=== PATIENT | male | born 1945 | race Hispanic/Latino ===

== ENCOUNTER 2019-01-25 13:27 | Inpatient (IN) | payer OTHER ==
[2019-01-25] MEDS ORDERED: ONDANSETRON 4 MG/2 ML VIAL ONE (14:08)
[2019-01-25] MEDS ORDERED: CEFEPIME 1 GM/100 ML BAG IV ONE (14:08)
[2019-01-25] MEDS ORDERED: NA CHLORIDE 0.9% 3,000 ML ONE (14:08)
[2019-01-25] MEDS ORDERED: FAMOTIDINE 20 MG/2 ML VIAL IV ONE (14:09)
[2019-01-25 14:13] LABS: Absolute Lymphocytes (CBC) 0.5 K/uL (0.7-4.9); Absolute Monocytes 0.8 K/uL (0.1-1.3); Absolute Neutrophil 18.6 K/uL (1.8-8.0); Basophils % 0.1 % (0-1.3); Eosinophils % 2.7 % (0-4.4); Hematocrit 58.9 % (39.6-49.0); Lymphocytes % 2.3 % (15.3-44.8); MPV 11.4 fL (7.6-11.3); Monocytes % 3.9 % (3.3-12.3); RBC Red Blood Cell Count 5.87 M/uL (4.33-5.43)
[2019-01-25] MEDS ORDERED: RSI MEDICATION KIT IV ONE (14:17)
[2019-01-25] MEDS ORDERED: PROPOFOL 0 MG/0 ML VIAL IV ONE (14:18)
[2019-01-25 14:23] LABS: Urine Blood TRACE (NEG); Urine Glucose TRACE (NEG); Urine Protein 1+ (NEG); Urine pH 5.5 (5.0-7.0)
[2019-01-25 14:25] LABS: Urine Bacteria LOADED /HPF (NONE SEEN); Urine Culture Reflex Order REFLEXED; Urine Mucus 1+ /HPF (NONE SEEN)
[2019-01-25 14:34] LABS: Arterial Blood Carboxyhemoglob 1.3 % (0-1.5); Blood Gas Oxyhemoglobin 97.2 % (94-97)
[2019-01-25] MEDS ORDERED: VANCOMYCIN/NS 1 gm 1 GM/250 ML BAG IV SCH ×2 (14:45→17:30)
[2019-01-25 14:56] LABS: Albumin 1.8 g/dL (3.4-5.0); Bilirubin Direct 5.7 mg/dL (0-0.2); CKMB Creatine Kinase MB 16.2 ng/mL (0.3-3.6); Potassium 5.4 mmol/L (3.5-5.1); Protein, Total 7.2 g/dL (6.4-8.2); Troponin (Emerg Dept Use Only) 0.87 ng/mL (0.0-0.045)
[2019-01-25 15:00] LABS: Bilirubin Total 8.7 mg/dL (0.2-1.0); Blood Morphology Comment NOT SEEN (NOT SEEN); Platelet Estimate DECR
[2019-01-25 15:21] LABS: Barbiturates NEGATIVE (NEGATIVE); Benzodiazepines NEGATIVE (NEGATIVE); Cocaine NEGATIVE (NEGATIVE); METHAMPHETAM NEGATIVE (NEGATIVE); Methadone NEGATIVE (NEGATIVE); Opiates NEGATIVE (NEGATIVE); Phencyclidine NEGATIVE (NEGATIVE); THC Cannibis NEGATIVE (NEGATIVE)
[2019-01-25 15:25] LABS: Protime INR 1.98
--- NOTE | 2019-01-25 15:28 | RAD REPORT ---
EXAM DESCRIPTION: CT - Head C Spine Cap Wo Con - 01/25/2019 3:08 pm CLINICAL HISTORY: Fall, head, neck, chest and abdomen pain COMPARISON: CT abdomen and pelvis September 2016, CT chest June 2018 TECHNIQUE: Axial [address] head images were obtained. Axial [address] cervical spine images were obtain ed with sagittal and coronal reconstruction images reviewed. Axial 5 mm images of the chest, abdomen and pelvis were obtained. All CT scans are performed using dose optimization technique as appropriate and may include automated exposure control or mA/KV adjustment according to patient size. FINDINGS: No intracranial hemorrhage, mass or edema. No midline shift or abnormal fluid collection. Mastoid air cells and paranasal sinuses are clear. No skull fracture. Atrophy and chronic ischemic c hanges are present. Ventricles are in proportion. Cervical bodies are normal in height and alignment. No fracture or acute bone finding.All cervical le vels show disc space narrowing. Multilevel bony foraminal encroachment and borderline to mild spinal stenosis C3-C6No prevertebral soft tissue thickening or paraspinal mass.Central canal detail is inher ently limited on CT imaging. CT chest shows no pneumothorax, pulmonary contusion or pleural fluid collection. Calcified pleural pl aques are present. No mediastinal hematoma and the aorta and pulmonary arteries are unremarkable. No chest will mass or abnormal axillary finding. No displaced rib fracture or other significant bony fin ding. CT abdomen and pelvis show no injury to solid abdominal viscera. Cirrhotic liver changes are present. No focal liver lesions seen on noncontrast imaging. Gallstones are present without acute gallbladder finding. No biliary tree dilatation. No bowel injury or significant finding. No free air, free fluid or abnormal stranding. No hernia, mass or bulky lymphadenopathy. No urinary bladder abnormality. Thoracic and lumbar vertebral body and disc degenerative changes are present without acute finding. N o pelvis or proximal femur acute finding. IMPRESSION: Atrophy and chronic ischemic changes are present with no acute intracranial finding. Cervical spine degenerative changes with foraminal stenosis and borderline to mild multilevel spinal stenosis. No acute findings seen. No acute CT chest finding. Cirrhotic liver changes are present with no ascites. No focal liver lesion on noncontrast imaging. No acute abdominal or pelvic finding.
--- NOTE | 2019-01-25 15:36 | RAD REPORT ---
EXAM DESCRIPTION: RAD - Chest Single View - 01/25/2019 2:51 pm CLINICAL HISTORY: Cirrhosis, shortness of breath, altered mental status COMPARISON: June 2018 TECHNIQUE: AP portable chest image was obtained 1438 hours . FINDINGS: Lung volumes are low. Interstitial markings are prominent. No peripheral mass or consolida tion. Calcified pleural plaques are present. Mild interstitial edema, infiltrate or volume overload c ould be masked by the chronic pattern. Cardiomegaly is present but less pronounced than seen on the p rior study. No measurable pleural effusion and no pneumothorax. No acute bony abnormality seen. No ac mi'kmaq aortic findings suspected. IMPRESSION: Chronic interstitial lung disease is present as a baseline. No focal consolidation. Heart, vasculature and lung markings are all prominent as a baseline potentially masking mild failure or volume overload.
[2019-01-25] MEDS ORDERED: SOD POLYSTYREN SUL 15 GM/60 ML UCUP ONE (15:48)
[2019-01-25] MEDS ORDERED: LACTULOSE 20 GM/30 ML UCUP ONE (15:48)
--- NOTE | 2019-01-25 15:57 | ER ---
Nurse's Notes [facility] Name: Ibrahima Fried Age: 73 yrs Sex: Male : 1945 Arrival Date: 01/25/2019 Time: 13:30 Bed 3 Private MD: Diagnosis: Altered mental status, unspecified;Urinary tract infection, site not specified;Other sepsis;Hyperkalemia Presentation: 01/25 13:30 Presenting complaint: EMS states: LAST SEEN NORMAL 5 DAYS AGO, NON-COMPLIANT CIRRHOTIC bp FOUND DOWN WITH EVIDENCE OF RECENT ETOH USE. Transition of care: patient was not received from another setting of care. Onset of symptoms is unknown. Risk Assessment: Do you want to hurt yourself or someone else? Unable to obtain. Initial Sepsis Screen: Does the patient meet any 2 criteria? RR > 20 per min. Altered Mental Status. Does the patient have a suspected source of infection? No. Patient's initial sepsis screen is negative. Care prior to arrival: IV initiated. 20 GA, in the left antecubital area, Glucose check: 92. 13:30 Method Of Arrival: EMS: [facility] bp 13:30 Acuity: TAYLER 2 bp Triage Assessment: 13:35 General: Appears distressed, obese, unkempt, Behavior is agitated, anxious, combative, bp uncooperative. Pain: Unable to use pain scale. Does not appear to understand pain scale. EENT: No deficits noted. Neuro: Level of Consciousness is confused, Oriented to none. Cardiovascular: Rhythm is sinus tachycardia. Respiratory: Airway is patent Respiratory effort is labored, Respiratory pattern is hyperventilation. GI: Abdomen is obese. : No signs and/or symptoms were reported regarding the genitourinary system. Derm: No deficits noted. Musculoskeletal: Range of motion: intact in all extremities. Historical: - Allergies: 13:35 Lisinopril; bp - Home Meds: 13:35 furosemide 40 mg oral tab 1 tab 2 times per day [Active]; spironolactone 100 mg oral bp tab [Active]; propranolol 60 mg oral tab 1 tab daily [Active]; Xifaxan 550 mg oral tab 1 tab 2 times per day [Active]; - PMHx: 13:35 Cirrhosis; CAD; atrial flutter; Atrial Fib; Alcoholism; bp - Immunization history:: Adult Immunizations unknown. - Social history:: Smoking status: unknown Patient uses alcohol, patient/guardian reports chronic longstanding heavy alcohol consumption. patient/guardian reports recent binge of alcohol consumption. - Ebola Screening: : Patient negative for fever greater than or equal to 101.5 degrees Fahrenheit, and additional compatible Ebola Virus Disease symptoms Patient denies exposure to infectious person Patient denies travel to an Ebola-affected area in the 21 days before illness onset No symptoms or risks identified at this time. Screenin:44 Abuse screen: Denies threats or abuse. Denies injuries from another. Nutritional bp screening: No deficits noted. Tuberculosis screening: No symptoms or risk factors identified. Fall Risk No fall in past 12 months (0 pts). No secondary diagnosis (0 pts). IV access (20 points). Ambulatory Aid- None/Bed Rest/Nurse Assist (0 pts). Gait- Normal/Bed Rest/Wheelchair (0 pts) Mental Status- Overestimates/Forgets Limitations (15 pts.). Total Teague Fall Scale indicates Low Risk Score (25-44 pts). Fall prevention measures have been instituted. Side Rails Up X 2 Placed close to Nursing Station Frequent Obs/Assesments occuring As available Patient and Family Educated on Fall Prevention Program and strategies. Assessment: 13:30 General: SEE TRIAGE NOTE. bp 14:30 Reassessment: MD CONTEMPLATING INTUBATION, BUT PT PROTECTING AIRWAY AT THIS TIME. PT bp HYPOTHERMIC, SPEEDY HUGGER IN PLACE FOR WARMING. 15:30 Reassessment: PT RETURNED FROM CT, NO ACUTE FINDINGS. NO CHANGE IN PT NEURO STATUS. bp 16:30 Reassessment: FAMILY AT B/S, CONFIRMED PT RECENT ALCOHOL BINGE >5 DAYS. bp 17:51 Reassessment: ICU ADMIT IN PROCESS, PT REMAINS AOx0. bp 18:04 Reassessment: Room assignment to ICU will be given after 1900 shift change per Destini Morris, Data Examination Clerk. 18:45 Reassessment: PT NOTED TO BE IN RVR, PROVIDER NOTIFIED. MEDS ORDERED AND GIVEN. bp Vital Signs: 13:35 BP 95 / 56; Pulse 104; Resp 24; Pulse Ox 95% ; Weight 113.4 kg; bp 13:47 BP 136 / 101; Pulse 111; Resp 21; Pulse Ox 99% ; bp 14:30 BP 135 / 89; Pulse 104; Resp 23; Pulse Ox 97% ; bp 15:30 BP 110 / 75; Pulse 110; Resp 26; Temp 94.1; Pulse Ox 93% ; bp 16:26 BP 113 / 74; Pulse 109; Resp 23; Pulse Ox 92% ; bp 17:50 BP 122 / 103; Pulse 122; Resp 25; Temp 95.7; Pulse Ox 92% ; bp 18:58 BP 114 / 80; Pulse 109; Resp 28; Temp 97.3; Pulse Ox 94% ; bp ED Course: 13:30 Patient arrived in ED. ss 13:30 Steven Gonzalez, RN is Primary Nurse. bp 13:32 Triage completed. bp 13:32 Maintain EMS IV. Dressing intact. Good blood return noted. Site clean \T\ dry. Gauge \T\ bp site: 20 GAUGE LEFT AC. 13:35 Arm band placed on. bp 13:44 Patient has correct armband on for positive identification. Placed in gown. Bed in low bp position. Call light in reach. Side rails up X2. aviation project engineer on. Pulse ox on. NIBP on. 13:45 Smith cath inserted, using sterile technique, 18 Fr., by boot and shoe laborer, balloon inflated, to bp gravity drainage, urine specimen collected. returned leatha urine. Patient tolerated well. Inserted saline lock: 18 gauge in right antecubital area, using aseptic technique. Blood collected. 13:46 Kenroy Rebolledo PA is PHCP. cp 13:46 Kenroy Jeffers MD is Attending Physician. cp 14:01 EKG done, by ED staff, reviewed by Kenroy PIPER. [email or web address] 14:51 Chest Single View XRAY In Process Unspecified. EDMS 15:00 NGT: inserted 14 Fr. via left nare. verified placement of air over stomach, flushed bp with 20 ml tap water Patient tolerated well. 15:09 Head C Spine Cap Wo Con In Process Unspecified. EDMS 15:52 Ken Ruvalcaba MD is Hospitalizing Provider. cp 15:52 Mode Ruano MD is Hospitalizing Provider. cp 18:45 EKG done, by ED staff, reviewed by Kenroy PIPER. [email or web address] Administered Medications: 13:59 CANCELLED (Physician Discretion): NS 0.9% (30 ml/kg) 30 ml/kg IV at bolus once; Sepsis cp Protocol 14:00 Drug: Cefepime 1 grams Route: IVPB; Rate: 200 ml/hr; Infused Over: 30 mins; Site: right bp antecubital; 14:30 Follow up: IV Status: Completed infusion ss 14:00 Drug: Zofran 4 mg Route: IVP; Site: right antecubital; bp 14:00 Drug: Pepcid 20 mg Route: IVP; Site: right antecubital; bp 14:00 Drug: NS 0.9% 1000 ml Route: IV; Rate: 1 bolus; Site: right antecubital; bp 14:00 Drug: NS 0.9% 1000 ml Route: IV; Rate: 1 bolus; Site: right antecubital; bp 15:10 Drug: vancoMYCIN 1 grams Route: IVPB; Infused Over: 2 hrs; Site: left antecubital; ss 15:10 Drug: Banana Bag - (NS 0.9% 1000 ml, foLIC Acid 1 mg, Thiamine 100 mg, Multivitamin 1 bp amp) Route: IV; Rate: 125 ml/hr; Site: right antecubital; 19:57 Follow up: IV Status: Infusion continued upon admission tl2 15:30 Drug: Kayexalate 30 grams Route: PO; bp 20:00 Follow up: Response: No adverse reaction tl2 15:30 Drug: Lactulose 30 grams Volume: 45 ml; Route: PO; bp 20:01 Follow up: Response: No adverse reaction tl2 16:00 Drug: Aspirin Suppository 300 mg Route: MT; bp 18:30 Follow up: Response: No adverse reaction bp 18:45 Drug: Lopressor 5 mg Route: IVP; Site: left antecubital; bp 19:56 Follow up: Response: No adverse reaction; No adverse reaction, HR decreased to 110 tl2 19:56 Not Given (pt sent to unit): NS 0.9% 1000 ml IV at 75 ml/hr continuous tl2 Point of Care Testing: Blood Glucose: 13:47 Blood Glucose: 93 mg/dL; bp Ranges: Outcome: 15:56 Decision to Hospitalize by Provider. cp 20:02 Patient left the ED. tl2 Signatures: Dispatcher [employer] EDHardeep Leblanc jb1 Keysha Rosales RN RN ss Kenroy Rebolledo PA PA cp Jessica Child RN RN tl2 Lisa, Steven, RN RN bp Corrections: (The following items were deleted from the chart) 14:21 14:06 In radiology for Head C Spine Cap Wo Con+CT.RAD.BRZ. EDMS EDMS
--- NOTE | 2019-01-25 15:57 | EDPHYS ---
Physician Documentation [facility] Name: Ibrahima Fried Age: 73 yrs Sex: Male : 1945 Arrival Date: 01/25/2019 Time: 13:30 Bed 3 Private MD: ED Physician Kenroy Jeffers HPI: 01/25 14:00 This 73 yrs old Male presents to ER via EMS with complaints of Altered Mental cp Status. 14:00 The patient presents with decreased mental status, decreased responsiveness. Onset: The cp symptoms/episode began/occurred at an unknown time. Possible causes: alcohol, cirrhosis. Unable to obtain HPI due to altered mental status. Historical: - Allergies: 13:35 Lisinopril; bp - Home Meds: 13:35 furosemide 40 mg oral tab 1 tab 2 times per day [Active]; spironolactone 100 mg oral bp tab [Active]; propranolol 60 mg oral tab 1 tab daily [Active]; Xifaxan 550 mg oral tab 1 tab 2 times per day [Active]; - PMHx: 13:35 Cirrhosis; CAD; atrial flutter; Atrial Fib; Alcoholism; bp - Immunization history:: Adult Immunizations unknown. - Social history:: Smoking status: unknown Patient uses alcohol, patient/guardian reports chronic longstanding heavy alcohol consumption. patient/guardian reports recent binge of alcohol consumption. - Ebola Screening: : Patient negative for fever greater than or equal to 101.5 degrees Fahrenheit, and additional compatible Ebola Virus Disease symptoms Patient denies exposure to infectious person Patient denies travel to an Ebola-affected area in the 21 days before illness onset No symptoms or risks identified at this time. ROS: 14:00 Unable to obtain ROS due to altered mental status. cp Exam: 13:55 ECG was reviewed by the Attending Physician. cp 14:05 Constitutional: The patient appears non-diaphoretic, well developed, well nourished. cp 14:05 Head/face: Exam is negative for obvious evidence of injury or deformity. cp 14:05 Eyes: Periorbital structures: appear normal, Pupils: pinpoint, bilaterally, Sclera: no appreciated abnormality, Lids and lashes: appear normal, bilaterally. 14:05 ENT: External ear(s): are unremarkable, Ear canal(s): are normal, clear, TM's: dullness, bilaterally, Nose: is normal, Mouth: Lips: dry, Oral mucosa: dry, noted dried vomitus around mouth, Posterior pharynx: Airway: no evidence of obstruction, patent, Dental exam: dental caries, that is moderate, diffusely. 14:05 Neck: C-spine: vertebral tenderness, is not appreciated, crepitus, is not appreciated. 14:05 Chest/axilla: Inspection: rash, Palpation: crepitus, is not appreciated, tenderness, is not appreciated. 14:05 Cardiovascular: Rate: tachycardic, Rhythm: irregular, Edema: is not appreciated, JVD: is not appreciated. 14:05 Respiratory: the patient does not display signs of respiratory distress, Respirations: labored breathing, is not present, Breath sounds: are clear throughout, no decreased breath sounds, no stridor, no wheezing. 14:05 Abdomen/GI: Inspection: distension, is not seen, Bowel sounds: active, all quadrants, Palpation: soft, in all quadrants, mild abdominal tenderness, in all quadrants. 14:05 Musculoskeletal/extremity: Exam is negative for deformity, injury. 14:05 Skin: cellulitis, is not appreciated, psoriasis, on the abdomen. 14:05 Neuro: Orientation: Not oriented to person, place, situation, Mentation: responsive to voice Motor: moves all fours. 18:35 ECG was reviewed by the Attending Physician. Vital Signs: 13:35 BP 95 / 56; Pulse 104; Resp 24; Pulse Ox 95% ; Weight 113.4 kg; bp 13:47 BP 136 / 101; Pulse 111; Resp 21; Pulse Ox 99% ; bp 14:30 BP 135 / 89; Pulse 104; Resp 23; Pulse Ox 97% ; bp 15:30 BP 110 / 75; Pulse 110; Resp 26; Temp 94.1; Pulse Ox 93% ; bp 16:26 BP 113 / 74; Pulse 109; Resp 23; Pulse Ox 92% ; bp 17:50 BP 122 / 103; Pulse 122; Resp 25; Temp 95.7; Pulse Ox 92% ; bp 18:58 BP 114 / 80; Pulse 109; Resp 28; Temp 97.3; Pulse Ox 94% ; bp MDM: 13:58 Patient medically screened. seema 15:45 Data reviewed: vital signs, nurses notes, lab test result(s), EKG, radiologic studies, cp CT scan, plain films, I have discussed the patient's presentation/case with the attending Emergency Department Physician; and as a result, I will admit patient. 15:45 Test interpretation: by ED physician or midlevel provider: ECG. 15:55 Physician consultation: Mode Ruano MD was called at 15:50, was contacted at 15:50, cp regarding admission, to the ICU, patient's condition. 01/25 13:48 Order name: Basic Metabolic Panel 01/25 13:48 Order name: Blood Culture Adult (2) 01/25 13:48 Order name: CBC with Diff 01/25 13:48 Order name: Ckmb 01/25 13:48 Order name: CPK 01/25 13:48 Order name: Lactate 01/25 13:48 Order name: LFT's 01/25 13:48 Order name: Lipase; Complete Time: 15:04 01/25 13:48 Order name: Procalcitonin; Complete Time: 15:31 cp 01/25 15:31 Interpretation: Abnormal: Procalcitonin 3.77. 01/25 13:48 Order name: Protime (+inr); Complete Time: 15:31 cp 01/25 13:48 Order name: Ptt, Activated; Complete Time: 15:31 cp 01/25 13:48 Order name: Troponin (emerg Dept Use Only); Complete Time: 15:04 01/25 15:06 Interpretation: Abnormal: TROPED 0.87. cp 01/25 13:48 Order name: Urine Microscopic Only; Complete Time: 14:43 01/25 15:06 Interpretation: Normal except: UWBC 10-20; URBC 5-10; UBACT LOADED; SQEPI 5-10. cp 01/25 13:48 Order name: AMMONIA; Complete Time: 14:43 cp 01/25 13:48 Order name: Basic Metabolic Panel; Complete Time: 15:04 EDMS 01/25 15:05 Interpretation: Normal except: NA 149; K 5.4; CL 111; BUN 69; CRE 1.86; GFR 36. cp 01/25 13:48 Order name: Blood Culture EDHI 01/25 13:48 Order name: CBC with Automated Diff; Complete Time: 15:04 EDHI 01/25 15:44 Interpretation: Normal except: WBC 20.4; RBC 5.87; HGB 19.2; HCT 58.9; MCV 100.4; PLT cp 59; RDW 18.4; MPV 11.4; SHERMAN% 91.0; LYM% 2.3; NEUT A 18.6; LYMA 0.5; EOSA 0.6. 01/25 13:48 Order name: CKMB Creatine Kinase MB; Complete Time: 15:04 EDMS 01/25 13:48 Order name: Creatine Phosphokinase; Complete Time: 15:04 EDMS 01/25 13:48 Order name: Lactate; Complete Time: 14:43 EDMS 01/25 13:48 Order name: Liver (Hepatic) Function; Complete Time: 15:04 EDMS 01/25 13:50 Order name: Urine Culture 01/25 14:01 Order name: Urine Dipstick--Ancillary (enter results); Complete Time: 14:43 eb 01/25 14:14 Order name: ABG; Complete Time: 14:43 cp 01/25 14:14 Order name: ETOH Level; Complete Time: 18:24 cp 01/25 14:14 Order name: UDS; Complete Time: 15:31 cp 01/25 14:37 Order name: Glucose, Ancillary Testing; Complete Time: 14:43 EDMS 01/25 14:59 Order name: Manual Differential; Complete Time: 15:06 EDMS 01/25 15:06 Interpretation: Abnormal: SEGS 95; BANDS [F] 2. cp 01/25 16:04 Order name: Vancomycin Level Trough; Complete Time: 01:39 EDMS 01/25 16:04 Order name: Basic Metabolic Panel EDHI 01/25 13:48 Order name: Chest Single View XRAY; Complete Time: 15:41 cp 01/25 13:48 Order name: Accucheck; Complete Time: 13:53 cp 01/25 13:48 Order name: Cardiac monitoring; Complete Time: 13:52 cp 01/25 13:48 Order name: EKG - Nurse/Tech; Complete Time: 13:52 cp 01/25 13:48 Order name: IV Saline Lock - Large Bore; Complete Time: 13:53 cp 01/25 13:48 Order name: Labs collected and sent; Complete Time: 14:15 cp 01/25 13:48 Order name: O2 Per Protocol; Complete Time: 13:53 cp 01/25 13:48 Order name: O2 Sat Monitoring; Complete Time: 13:53 cp 01/25 14:24 Order name: Head C Spine Cap Wo Con; Complete Time: 15:31 EDHI 01/25 16:04 Order name: CONS Pharmacy Consult EDHI 01/25 16:04 Order name: NPO EDHI 01/25 16:04 Order name: Basic Metabolic Panel EDHI 01/25 16:04 Order name: CBC with Automated Diff EDHI 01/25 16:04 Order name: CBC with Automated Diff EDHI 01/25 18:26 Order name: XRAY Chest (1 view) 01/25 18:26 Order name: EKG; Complete Time: 18:27 cp 01/25 19:04 Order name: Lactate Sepsis 2 HR Follow-up; Complete Time: 01:39 EDHI 01/25 19:10 Order name: RAD; Complete Time: 01:39 EDHI 01/25 13:48 Order name: Urine Dipstick-Ancillary (obtain specimen); Complete Time: 16:41 cp 01/25 13:50 Order name: Smith; Complete Time: 13:53 cp 01/25 14:01 Order name: NG Tube; Complete Time: 16:41 cp 01/25 18:26 Order name: EKG - Nurse/Tech; Complete Time: 18:31 cp EC:55 Rate is 102 beats/min. Rhythm is irregular. QRS interval is prolonged at 130 msec. QT cp interval is normal. Interpreted by me. Reviewed by me. 18:35 Rate is 124 beats/min. Rhythm is irregular. QRS interval is prolonged at 124 msec. QT cp interval is normal. T waves are Inverted in leads I, aVL, V5, V6. Interpreted by me. Reviewed by me. Administered Medications: 13:59 CANCELLED (Physician Discretion): NS 0.9% (30 ml/kg) 30 ml/kg IV at bolus once; Sepsis cp Protocol 14:00 Drug: Cefepime 1 grams Route: IVPB; Rate: 200 ml/hr; Infused Over: 30 mins; Site: right bp antecubital; 14:30 Follow up: IV Status: Completed infusion ss 14:00 Drug: Zofran 4 mg Route: IVP; Site: right antecubital; bp 14:00 Drug: Pepcid 20 mg Route: IVP; Site: right antecubital; bp 14:00 Drug: NS 0.9% 1000 ml Route: IV; Rate: 1 bolus; Site: right antecubital; bp 14:00 Drug: NS 0.9% 1000 ml Route: IV; Rate: 1 bolus; Site: right antecubital; bp 15:10 Drug: vancoMYCIN 1 grams Route: IVPB; Infused Over: 2 hrs; Site: left antecubital; ss 15:10 Drug: Banana Bag - (NS 0.9% 1000 ml, foLIC Acid 1 mg, Thiamine 100 mg, Multivitamin 1 bp amp) Route: IV; Rate: 125 ml/hr; Site: right antecubital; 19:57 Follow up: IV Status: Infusion continued upon admission tl2 15:30 Drug: Kayexalate 30 grams Route: PO; bp 20:00 Follow up: Response: No adverse reaction tl2 15:30 Drug: Lactulose 30 grams Volume: 45 ml; Route: PO; bp 20:01 Follow up: Response: No adverse reaction tl2 16:00 Drug: Aspirin Suppository 300 mg Route: OH; bp 18:30 Follow up: Response: No adverse reaction bp 18:45 Drug: Lopressor 5 mg Route: IVP; Site: left antecubital; bp 19:56 Follow up: Response: No adverse reaction; No adverse reaction, HR decreased to 110 tl2 19:56 Not Given (pt sent to unit): NS 0.9% 1000 ml IV at 75 ml/hr continuous tl2 Point of Care Testing: Blood Glucose: 13:47 Blood Glucose: 93 mg/dL; bp Ranges: Critical Glucose Levels:Adult <50 mg/dl or >400 mg/dl <40 mg/dl or >180 mg/dl Disposition: 20:05 Critical Care:. cp 20:05 Chart complete. cp 01/26 08:58 Co-signature as Attending Physician, Kenroy Jeffers MD I agree with the assessment and seema plan of care. Disposition: 01/25/19 15:56 Hospitalization ordered by Mode Ruano for Inpatient Admission. Preliminary diagnosis are Altered mental status, unspecified, Urinary tract infection, site not specified, Other sepsis, Hyperkalemia. - Bed requested for Intensive Care Unit. - Status is Inpatient Admission. tl2 - Condition is Critical. - Problem is new. - Symptoms have improved. UTI on Admission? Yes Critical care time excluding procedures: 01/25 20:05 Critical care time: Bedside Care: 20 minutes, Consultation: 5 minutes, Family cp Intervention: 5 minutes. Total time: 30 minutes Signatures: Dispatcher [employer] EDHI Kenroy Jeffers MD MD cha Smirch, Shelby, RN RN ss Kenroy Rebolledo PA PA cp Jessica Child RN RN tl2 Steven Gonzalez RN RN Jesica rGeco Corrections: (The following items were deleted from the chart) 13:59 13:48 NS 0.9% (30 ml/kg) 30 ml/kg IV at bolus once; Sepsis Protocol ordered. cp cp 14:21 13:49 Head C Spine Cap Wo Con+CT.RAD.BRZ ordered. EDHI EDHI 15:43 15:05 Normal except: WBC 20.4; RBC 5.87; HGB 19.2; HCT 58.9; MCV 100.4; PLT 59; RDW cp 18.4; MPV 11.4; SHERMAN% 91.0; LYM% 2.3. cp 15:44 15:43 Normal except: WBC 20.4; RBC 5.87; HGB 19.2; HCT 58.9; MCV 100.4; PLT 59; RDW cp 18.4; MPV 11.4; SHERMAN% 91.0; LYM% 2.3; NEUT A 18.6. cp 15:44 15:44 Normal except: WBC 20.4; RBC 5.87; HGB 19.2; HCT 58.9; MCV 100.4; PLT 59; RDW cp 18.4; MPV 11.4; SHERMAN% 91.0; LYM% 2.3; NEUT A 18.6; LYMA 0.5. cp 18:31 15:56 Hospitalization Ordered by Mode Ruano MD for Inpatient Admission. Preliminary eb diagnosis is Altered mental status, unspecified; Urinary tract infection, site not specified; Other sepsis; Hyperkalemia. Bed requested for Intensive Care Unit. Status is Inpatient Admission. Condition is Critical. Problem is new. Symptoms have improved. UTI on Admission? Yes. cp 20:02 18:31 01/25/2019 15:56 Hospitalization Ordered by Mode Ruano MD for Inpatient tl2 Admission. Preliminary diagnosis is Altered mental status, unspecified; Urinary tract infection, site not specified; Other sepsis; Hyperkalemia. Bed requested for Intensive Care Unit. Status is Inpatient Admission. Condition is Critical. Problem is new. Symptoms have improved. UTI on Admission? Yes. eb
[2019-01-25] MEDS ORDERED: FOLIC ACID 1 MG, MULTIVITAMINS INJ 10 ML, THIAMINE HCL 100 MG in NA CHLORIDE 0.9% 1,000 ML IV SCH (16:00)
[2019-01-25] MEDS ORDERED: NA CHLORIDE 0.9% 1,000 ML IV SCH (16:00)
[2019-01-25] MEDS ORDERED: Pharmacy Consult 1 EA XX PRN (16:01)
[2019-01-25] MEDS ORDERED: ASPIRIN 600 MG/SUPP PR ONE (17:02)
[2019-01-25] MEDS ORDERED: METOPROLOL TARTRATE 5 MG/5 ML INJ IV ONE (18:56)
--- NOTE | 2019-01-25 19:10 | RAD REPORT ---
EXAM DESCRIPTION: RAD - Chest Single View - 01/25/2019 6:51 pm CLINICAL HISTORY: Shortness of breath, aspiration, possible aspiration pneumonia COMPARISON: January 25 ; June 2018 TECHNIQUE: AP portable chest image was obtained 1844 hours . FINDINGS: Lung volumes are low. Calcified plaquing changes are again noted. NG tube has been placed. Portable technique, supine positioning and shallow inspiration all limit the examination. No clear c hange in the lung parenchyma. Lung base atelectasis is evident. Failure/volume overload are doubtful. Heart and vasculature are normal. No measurable pleural effusion and no pneumothorax. No acute bony abnormality seen. No acute aortic findings suspected. IMPRESSION: Limited portable study not significantly different from earlier examination. NG tube is in place with tip extending below the diaphragm.
[2019-01-25] MEDS ORDERED: CEFEPIME 1 GM/VIAL IV SCH (21:00)
[2019-01-26] MEDS: NOREPINEPHRINE 4 MG in D5W 250 ML IV PRN ×4 (00:50→08:30)
[2019-01-26] MEDS ORDERED: NOREPINEPHRINE 4 MG/4 ML VIAL ONE ×2 (00:57→03:38)
[2019-01-26] MEDS ORDERED: D5W 250 ML IV ONE ×2 (00:58→03:38)
[2019-01-26] MEDS ORDERED: NA CHLORIDE 0.9% 250 ML ONE ×2 (01:59→04:22)
[2019-01-26] MEDS ORDERED: Phenylephrine HCl 10 MG/ML 1 ML VIAL ONE (01:59)
[2019-01-26] MEDS ORDERED: ROCURONIUM 50 MG/5 ML VIAL IV STA (02:12)
[2019-01-26] MEDS ORDERED: ETOMIDATE 20 MG/10 ML VIAL IV STA (02:12)
[2019-01-26] MEDS ORDERED: RSI MEDICATION KIT IV ONE (02:15)
[2019-01-26] MEDS ORDERED: ROCURONIUM 50 MG/5 ML VIAL IV ONE ×2 (02:17→02:24)
[2019-01-26 02:24] LABS: Arterial Blood Carboxyhemoglob 0.8 % (0-1.5); Blood Gas Oxyhemoglobin 85.6 % (94-97); Blood O2 Saturation 86.9 % (92-98.5)
[2019-01-26] MEDS ORDERED: HALOPERIDOL LACT 5 MG/ML INJ IV PRN (02:36)
[2019-01-26] MEDS ORDERED: PROPOFOL 1,000 MG/100 ML VIAL IV PRN (02:36)
[2019-01-26] MEDS ORDERED: FENTANYL CITR 100 MCG/2 ML IV PRN (02:36)
[2019-01-26] MEDS ORDERED: LORazepam 2 MG/ML VIAL IV PRN (02:36)
[2019-01-26] MEDS ORDERED: MIDAZOLAM HCL 2 MG/2 ML INJ IV PRN (02:36)
[2019-01-26] MEDS ORDERED: HYDROCORTISONE SUC 100 MG INJ IV STA (03:13)
[2019-01-26 03:40] LABS: Arterial Blood Carboxyhemoglob 0.7 % (0-1.5); Blood Gas Oxyhemoglobin 94.9 % (94-97); Blood O2 Saturation 96.2 % (92-98.5)
[2019-01-26] MEDS ORDERED: WATER FOR INJ,STERILE 10 ML ONE ×2 (03:42→20:40)
[2019-01-26] MEDS ORDERED: NA CHLORIDE 0.9% 1,000 ML IV SCH (04:00)
[2019-01-26] MEDS: VASOPRESSIN 80 UNIT in NA CHLORIDE 0.9% 250 ML IV PRN (04:20)
[2019-01-26] MEDS ORDERED: VASOPRESSIN 20 UNIT/ML VIAL ONE (04:22)
[2019-01-26] MEDS ORDERED: NOREPINEPHRINE 4mg/D5W 250mL 4 MG/250 ML BAG IV ONE (05:17)
[2019-01-26] MEDS: CEFEPIME/SWI 1gm 10 ML IV SCH ×3 (05:39→18:24)
[2019-01-26] MEDS ORDERED: CEFEPIME 1 GM/100 ML BAG IV ONE (05:50)
--- NOTE | 2019-01-26 05:51 | EKG ---
Test Date: 2019-01-25 Test Time: 18:31:12 Sales Commissions Analyst: MILADIS MEASUREMENT RESULTS: Intervals: Rate: 124 MI: QRSD: 124 QT: 352 QTc: 505 [place]: P: MI: QRS: -23 T: 134 INTERPRETIVE STATEMENTS: Atrial fibrillation with rapid ventricular response with premature ventricular or aberrantly conducted complexes Left bundle branch block Abnormal ECG No previous ECG available for comparison Electronically Signed On 01-26-19 05:51:23 CDT by Everton Santiago
[2019-01-26 05:54] LABS: Potassium 6.4 mmol/L (3.5-5.1)
[2019-01-26 05:59] LABS: Absolute Lymphocytes (CBC) 0.3 K/uL (0.7-4.9); Absolute Monocytes 0.2 K/uL (0.1-1.3); Absolute Neutrophil 9.5 K/uL (1.8-8.0); Basophils % 0.2 % (0-1.3); Eosinophils % 7.3 % (0-4.4); Hematocrit 52.4 % (39.6-49.0); Lymphocytes % 2.8 % (15.3-44.8); Monocytes % 1.8 % (3.3-12.3); RBC Red Blood Cell Count 5.06 M/uL (4.33-5.43)
[2019-01-26] MEDS: DEXTROSE 10%-WATER 500 ML IV SCH ×3 (06:11→16:15)
[2019-01-26] MEDS ORDERED: D50W 25 GM/50 ML SYRINGE IV ONE (06:12)
[2019-01-26] MEDS ORDERED: SOD POLYSTYREN SUL 15 GM/60 ML UCUP PO ONE (06:40)
[2019-01-26 06:47] LABS: Blood Morphology Comment NOTED (NOT SEEN); Platelet Estimate DECR; Urine White Blood Cell Casts OK
[2019-01-26 06:48] LABS: Anisocytosis 2+; Macrocytosis 1+; Poikilocytosis 1+; Polychromasia 1+
[2019-01-26] MEDS ORDERED: SOD POLYSTYREN SUL 15 GM/60 ML UCUP ONE (06:48)
--- NOTE | 2019-01-26 06:48 | P.CNS ---
Date of Consult: 01/26/19 Chief Complaint: Respiratory failure septic shock satisfactory hypotension History of Present Illness: Patient is 73 years of age. Not much history available the [place] at bedside have not spoken to him for about a week was found unresponsive brought to the emergency room thereon became unresponsive was intubated central line was placed currently he is coma toes on maximum vasodilators renal failure respiratory failure on 100% oxygen maximum vaso pressor therapy blood cultures are positive urine cultures also positive the broad-spectrum antibiotic therapy patient has a history of alcoholic liver disease not sure these actively drinking Allergies lisinopril Allergy (Verified 05/03/14 12:43) Anaphylaxis Home Medications: Spironolactone [Aldactone*] 100 mg PO DAILY 05/09/16 Thiamine Mononitrate [Vitamin B-1] 1 tab PO DAILY 06/01/16 Desoximetasone 1 appl TD BID 01/25/19 Furosemide [Lasix] 40 mg PO BIDL 01/25/19 Multivit-Min/Iron Fum/Folic AC [Lnijm-Rkpcbpu-Nrrmrteh Tablet] 1 tab PO DAILY Propranolol [Inderal LA*] 60 mg PO DAILY 01/25/19 Rifaximin [Xifaxan*] 550 mg PO BID 01/25/19 - Past Medical/Surgical History Diabetic: No -: HTN -: AFib/aflutter -: CAD -: cirrhosis -: ETOH abuse -: psoriasis -: appendectomy -: endurant abdominal stent graft (January 2017) - Family History Mother Medical History: Diabetes Father History Unknown: Yes Brother Medical History: Diabetes - Social History Smoking Status: Unknown if ever smoked Alcohol use: Yes CD- Drugs: No Caffeine use: Yes Place of Residence: Home Review of Systems is unable to be obtained Physical Examination Temp Pulse Resp BP Pulse Ox 98.8 F 131 H 22 H 123/71 93 01/26/19 05:00 01/26/19 06:15 01/26/19 06:15 01/26/19 06:15 01/26/19 06:15 General: Comatose Neck: Supple Respiratory: Clear to auscultation bilaterally Cardiovascular: Edema (Minimal edema he has cut the venous discoloration of lower extremities) Gastrointestinal: Hypoactive, Non-distended Integumentary: Rash(es) (Patient has generalized I suspect psoriasishe is generally very pigmented) Laboratory Data (last 24 hrs) 01/25/19 13:55: PT 22.8 H, INR 1.98, APTT 43.3 H 01/25/19 13:55: WBC 20.4 H*, Hgb 19.2 H, Hct 58.9 H, Plt Count 59 L 01/25/19 13:55: Sodium 149 H, Potassium 5.4 H, BUN 69 H, Creatinine 1.86 H, Glucose 95, Total Bilirubin 8.7 H*, AST 75 H, ALT 45, Alkaline Phosphatase 133 H , Lipase 87 - Problems (1) Shock Current Visit: Yes Status: Acute Plan: Patient is 73 years of age admitted with respiratory failure shock severe sepsis blood cultures are positive acute renal failure thrombocytopenia is also hypoxic hyperkalemia CT acidotic x-rays clear intubated on maximum vasopressor therapy I have added additional doses of hydrocortisone patient has had IV thymine on vancomycin and cefepime blood cultures are positive for Gram positive cocci in clusters urinalysis is negative for infection chest x-rays also clear I suspect a source of infection is from his skin patient's kidney function has deteriorated
[2019-01-26] MEDS ORDERED: D5W 1,000 ML with NA BICARB 8.4% 100 MEQ IV SCH ×4 (07:00→11:45)
--- NOTE | 2019-01-26 08:15 | RAD REPORT ---
EXAM DESCRIPTION: RAD - Chest Single View - 01/26/2019 2:30 am CLINICAL HISTORY: s/p intubation Chest pain. COMPARISON: Chest Single View dated 01/25/2019; Chest Single View dated 01/25/2019; Chest Pa And Lat ( 2 Views) dated 06/25/2018; Chest Single View dated 09/13/2016 FINDINGS: Portable technique limits examination quality. ET tube tip is above the justino. Enteric tube descends into the stomach. Mild interstitial pulmonary edema suspected. The heart is moderately enlarged.
--- NOTE | 2019-01-26 08:18 | EKG ---
Test Date: 2019-01-25 Test Time: 13:53:34 [employer] Field Supervisor: MILADIS MEASUREMENT RESULTS: Intervals: Rate: 102 [place]: QRSD: 130 QT: 398 QTc: 518 [place]: P: NH: QRS: -49 T: 101 INTERPRETIVE STATEMENTS: Atrial fibrillation with rapid ventricular response Left axis deviation Left bundle branch block Abnormal ECG Compared to the ECG from 09-13-2016 no significant change from previous ECG Electronically Signed On 01-26-19 08:17:47 CDT by Everton Santiago
[2019-01-26] MEDS ORDERED: FAMOTIDINE 20 MG/2 ML VIAL IV SCH (09:00)
[2019-01-26] MEDS ORDERED: Rifaximin 550 MG Tab PO SCH (09:00)
[2019-01-26] MEDS: ASCORBIC ACID 500 MG TABLET PO SCH ×3 (09:00→20:29)
[2019-01-26] MEDS ORDERED: PROPRANOLOL HCL 60 MG SA CAP PO SCH (09:00)
[2019-01-26] MEDS ORDERED: THIAMINE HCL 100 MG TABLET PO SCH (09:00)
[2019-01-26] MEDS ORDERED: ETOMIDATE 20 MG/10 ML VIAL IV ONE (09:16)
[2019-01-26 09:18] LABS: Albumin 1.4 g/dL (3.4-5.0); Bilirubin Total 6.9 mg/dL (0.2-1.0); Protein, Total 5.3 g/dL (6.4-8.2)
[2019-01-26 09:23] LABS: Potassium 6.4 mmol/L (3.5-5.1)
[2019-01-26 09:39] LABS: Arterial Blood Carboxyhemoglob 0.6 % (0-1.5); Blood Gas Oxyhemoglobin 80.5 % (94-97); Blood O2 Saturation 81.4 % (92-98.5)
[2019-01-26] MEDS: HYDROCORTISONE SUC 100 MG INJ IV SCH ×2 (10:44→20:30)
[2019-01-26] MEDS: FAMOTIDINE 20 MG/2 ML VIAL IV SCH (10:44)
[2019-01-26] MEDS: THIAMINE 200 MG/2 ML INJ IVP SCH (10:44)
--- NOTE | 2019-01-26 11:58 | P.CNS ---
Date of Consult: 01/26/19 Reason for Consult: PEPE Requesting Physician: Mode Ruano V Chief Complaint: Respiratory failure septic shock satisfactory hypotension History of Present Illness: 73 yo HM Liver cirrhosis presented to the ER unresponsive and septic to the ER. The family found him at home and called EMS. He was not seen or heard from for at least 5 days. The patient was seen and examined in the ICU. Limited HPI/ ROS due to unresponsive state. Case discussed with the nurse and family at the bedside. No urine ouput. Maximum pressor therapy. Ventilator support. Allergies lisinopril Allergy (Verified 05/03/14 12:43) Anaphylaxis Home medications list reviewed: Yes Home Medications: Spironolactone [Aldactone*] 100 mg PO DAILY 05/09/16 Thiamine Mononitrate [Vitamin B-1] 1 tab PO DAILY 06/01/16 Desoximetasone 1 appl TD BID 01/25/19 Furosemide [Lasix] 40 mg PO BIDL 01/25/19 Multivit-Min/Iron Fum/Folic AC [Upnyh-Ivofgfq-Hflmkwla Tablet] 1 tab PO DAILY Propranolol [Inderal LA*] 60 mg PO DAILY 01/25/19 Rifaximin [Xifaxan*] 550 mg PO BID 01/25/19 - Past Medical/Surgical History Diabetic: No -: HTN -: AFib/aflutter -: CAD -: cirrhosis -: ETOH abuse -: psoriasis -: appendectomy -: endurant abdominal stent graft (January 2017) - Family History Mother Medical History: Diabetes Father History Unknown: Yes Brother Medical History: Diabetes - Social History Smoking Status: Unknown if ever smoked Alcohol use: Yes CD- Drugs: No Caffeine use: Yes Place of Residence: Home Review of Systems is unable to be obtained Physical Examination Temp Pulse Resp BP Pulse Ox 98.8 F 119 H 27 H 122/109 H 94 01/26/19 05:00 01/26/19 11:30 01/26/19 11:30 01/26/19 11:30 01/26/19 09:15 General: Unresponsive, Obese HEENT: Normocephalic, Scleral icterus Neck: Supple, No LAD Respiratory: Clear to auscultation bilaterally, Normal air movement Cardiovascular: No rubs, Edema (Hips) Gastrointestinal: Hypoactive, Non-distended, No guarding Musculoskeletal: No clubbing, No contractures, No erythema Integumentary: No rashes, No significant lesion, No cyanosis Neurological: Other (Non responsive) Urinary: Smith catheter Laboratory Data (last 24 hrs) 01/25/19 13:55: PT 22.8 H, INR 1.98, APTT 43.3 H 01/25/19 13:55: WBC 20.4 H*, Hgb 19.2 H, Hct 58.9 H, Plt Count 59 L 01/25/19 13:55: Sodium 149 H, Potassium 5.4 H, BUN 69 H, Creatinine 1.86 H, Glucose 95, Total Bilirubin 8.7 H*, AST 75 H, ALT 45, Alkaline Phosphatase 133 H , Lipase 87 Imagings Data: EXAM DESCRIPTION: CT - Head C Spine Cap Wo Con - 01/25/2019 3:08 pm CLINICAL HISTORY: Fall, head, neck, chest and abdomen pain COMPARISON: CT abdomen and pelvis September 2016, CT chest June 2018 TECHNIQUE: Axial [address] head images were obtained. Axial [address] cervical spine images were obtained with sagittal and coronal reconstruction images reviewed. Axial 5 mm images of the chest, abdomen and pelvis were obtained. All CT scans are performed using dose optimization technique as appropriate and may include automated exposure control or mA/KV adjustment according to patient size. FIDINGS: No intracranial hemorrhage, mass or edema. No midline shift or abnormal fluid collection. Mastoid air cells and paranasal sinuses are clear. No skull fracture. Atrophy and chronic ischemic changes are present. Ventricles are in proportion. Cervical bodies are normal in height and alignment. No fracture or acute bone finding.All cervical levels show disc space narrowing. Multilevel bony foraminal encroachment and borderline to mild spinal stenosis C3-C6No prevertebral soft tissue thickening or paraspinal mass.Central canal detail is inherently limited on CT imaging. CT chest shows no pneumothorax, pulmonary contusion or pleural fluid collection. Calcified pleural plaques are present. No mediastinal hematoma and the aorta and pulmonary arteries are unremarkable. No chest will mass or abnormal axillary finding. No displaced rib fracture or other significant bony finding. CT abdomen and pelvis show no injury to solid abdominal viscera. Cirrhotic liver changes are present. No focal liver lesions seen on noncontrast imaging. Gallstones are present without acute gallbladder finding. No biliary tree dilatation. No bowel injury or significant finding. No free air, free fluid or abnormal stranding. No hernia, mass or bulky lymphadenopathy. No urinary bladder abnormality. Thoracic and lumbar vertebral body and disc degenerative changes are present without acute finding. No pelvis or proximal femur acute finding. IMPRESSION: Atrophy and chronic ischemic changes are present with no acute intracranial finding. Cervical spine degenerative changes with foraminal stenosis and borderline to mild multilevel spinal stenosis. No acute findings seen. No acute CT chest finding. Cirrhotic liver changes are present with no ascites. No focal liver lesion on noncontrast imaging. No acute abdominal or pelvic finding. Conclusions/Impression: A/ PEPE in the setting of severe sepsis. Hyperkalemia. Hypernatremia. Acidosis. Proteinuria. Severe sepsis with shock. EtOH Liver cirrhosis. Acute hepatitis. Hypoalbuminemia. Thrombocytopenia. P/ Continue current POC and Medications. IVF adjusted. Continue bicarb gtt. Give IV Albumin. Start free water throught NGT. Agree with kayexalate. Pressor support as ordered. Ventilator support as ordered. Agree with abx. No NSAIDs. Repeat BMP this evening. AM Labs. Daily weight. Thank you kindly for the consultation. Family just made the patient DNR. Critical Care: Yes (Greater than 30 minutes.)
--- NOTE | 2019-01-26 12:32 | P.HP ---
Certification for Inpatient Patient admitted to: Inpatient With expected LOS: >2 Midnights Practitioner: I am a practitioner with admitting privileges, knowledge of patient current condition, hospital course, and medical plan of care. Services: Services provided to patient in accordance with Admission requirements found in Title 42 Section 412.3 of the Code of Federal Regulations Patient History Date of Service: 01/26/19 Reason for admission: Respiratory failure septic shock satisfactory hypotension History of Present Illness: MR. 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 RECENTLY HE HAD STARTED TO DRINK AGAIN AND AT HIS HOME HE WAS FOUND ON THE FLOOR BY DAUGHTER. HE HAD BEEN ON THE FLOOR FOR 3 DAYS APPX. HE IS IN SEPTIC SHOCK, HE IS ON 3 MEDS TO KEEP PRESSURE UP TO 90 SYSTOLIC. HE IS TOTALLY COMATOSE. Allergies lisinopril Allergy (Verified 05/03/14 12:43) Anaphylaxis Home Medications: Spironolactone [Aldactone*] 100 mg PO DAILY 05/09/16 Thiamine Mononitrate [Vitamin B-1] 1 tab PO DAILY 06/01/16 Desoximetasone 1 appl TD BID 01/25/19 Furosemide [Lasix] 40 mg PO BIDL 01/25/19 Multivit-Min/Iron Fum/Folic AC [Brmyf-Ebeerhk-Lybsmuhb Tablet] 1 tab PO DAILY Propranolol [Inderal LA*] 60 mg PO DAILY 01/25/19 Rifaximin [Xifaxan*] 550 mg PO BID 01/25/19 - Past Medical/Surgical History Diabetic: No -: HTN -: AFib/aflutter -: CAD -: cirrhosis -: ETOH abuse -: psoriasis -: appendectomy -: endurant abdominal stent graft (January 2017) - Family History Mother -: Diabetes Father History Unknown: Yes Brother -: Diabetes - Social History Smoking Status: Former smoker Alcohol use: Yes CD- Drugs: No Caffeine use: Yes Place of Residence: Home Review of Systems is unable to be obtained Physical Examination - Vital Signs Temperature: 98.8 F Blood Pressure: 122/109 Pulse: 119 Respirations: 27 Pulse Ox (%): 94 - Physical Exam General: Comatose, Obese Respiratory: Diminished (VENT SUPPORTED.) Cardiovascular: Abnormal S1 S2 (TACHHYCARDIA.) - Studies Laboratory Data (last 24 hrs) 01/25/19 13:55: PT 22.8 H, INR 1.98, APTT 43.3 H 01/25/19 13:55: WBC 20.4 H*, Hgb 19.2 H, Hct 58.9 H, Plt Count 59 L 01/25/19 13:55: Sodium 149 H, Potassium 5.4 H, BUN 69 H, Creatinine 1.86 H, Glucose 95, Total Bilirubin 8.7 H*, AST 75 H, ALT 45, Alkaline Phosphatase 133 H , Lipase 87 Assessment and Plan - Problems (Diagnosis) (1) Shock Current Visit: Yes Status: Acute Plan: HE IS TERMINAL FROM SEPTIC SHOCK. ALL HIS LAB SHOWS EFFCTS OF SEPSIS AND LOW BP. SOURCE OF SEPSIS IS NOT CLEAR ON CT SCANS. IN ANY CASE THE OUTCOME IS TERMINAL. I HAD LONG DISCUSSION WITH ALL FOUR SONS AND DAUGHTER IN LAW. THEY UNDERSTAND THAT HE IS END STAGE AND WITHOUT MEDICINES HE WILL IN MINUTES. HIS OUTCOME WITH FULL CODE IS THE SAME. I RECOMMENDED DNR AND THEY DID TODAY. I ALSO RECOMMEND WITHDRAWAL OF CARE AND THEY ARE THINKING ABOUT IT. IF THEY DON'T DO IT HE WILL STILL PASS WITH ALL MEDS AND INTUBATION ON. (2) Alcohol abuse Current Visit: No Status: Acute - Advance Directives Does patient have a Living Will: No Does patient have a Durable POA for Healthcare: No
[2019-01-26] MEDS: ALBUMIN HUMAN 25% 200 ML IV SCH ×2 (13:49→18:23)
[2019-01-26] MEDS: NOREPINEPHRINE 8 MG in Dextrose 5%-Water 500 ML IV PRN ×2 (16:00→20:29)
[2019-01-26] MEDS: D5W 1,000 ML with NA BICARB 8.4% 75 MEQ IV SCH ×2 (18:24)
[2019-01-26 19:59] LABS: Potassium 5.7 mmol/L (3.5-5.1)
[2019-01-26] MEDS ORDERED: SOD POLYSTYREN SUL 15 GM/60 ML UCUP FT ONE (20:39)
[2019-01-27] MEDS: NOREPINEPHRINE 8 MG in Dextrose 5%-Water 500 ML IV PRN ×5 (01:06→22:55)
[2019-01-27] MEDS: D5W 1,000 ML with NA BICARB 8.4% 75 MEQ IV SCH ×4 (02:54→12:28)
[2019-01-27 05:33] LABS: Absolute Lymphocytes (CBC) 0.9 K/uL (0.7-4.9); Absolute Monocytes 0.4 K/uL (0.1-1.3); Absolute Neutrophil 13.1 K/uL (1.8-8.0); Basophils % 0.1 % (0-1.3); Eosinophils % 1.8 % (0-4.4); Hematocrit 36.7 % (39.6-49.0); Lymphocytes % 5.9 % (15.3-44.8); MPV 9.8 fL (7.6-11.3); Monocytes % 2.5 % (3.3-12.3); RBC Red Blood Cell Count 3.49 M/uL (4.33-5.43)
[2019-01-27] MEDS ORDERED: VANCOMYCIN 2 GM in NA CHLORIDE 0.9% 500 ML IVPB SCH (06:00)
[2019-01-27] MEDS: CEFEPIME/SWI 1gm 10 ML IV SCH ×2 (06:32→18:02)
[2019-01-27] MEDS ORDERED: D5W 250 ML IV ONE (06:40)
[2019-01-27] MEDS ORDERED: NOREPINEPHRINE 4 MG/4 ML VIAL ONE (06:40)
[2019-01-27 07:04] VITALS: BMI 41.8
[2019-01-27 07:14] LABS: Albumin 2.3 g/dL (3.4-5.0); Bilirubin Total 11.3 mg/dL (0.2-1.0); Protein, Total 4.5 g/dL (6.4-8.2)
[2019-01-27 07:18] LABS: Potassium 5.9 mmol/L (3.5-5.1)
[2019-01-27 08:32] LABS: Platelet Estimate DECR; Platelets, Giant PRESENT; Toxic Granulation 2+; Urine White Blood Cell Casts OK
[2019-01-27 08:33] LABS: Blood Morphology Comment NOTED (NOT SEEN); Burr Cells 1+
[2019-01-27] MEDS: THIAMINE 200 MG/2 ML INJ IVP SCH (10:01)
[2019-01-27] MEDS: ASCORBIC ACID 500 MG TABLET PO SCH ×2 (10:01→20:17)
[2019-01-27] MEDS: FAMOTIDINE 20 MG/2 ML VIAL IV SCH (10:01)
[2019-01-27] MEDS: WATER FOR INJ,STERILE 10 ML IV SCH ×2 (10:01→20:17)
[2019-01-27] MEDS: HYDROCORTISONE SUC 100 MG INJ IV SCH ×2 (10:02→20:17)
--- NOTE | 2019-01-27 12:17 | P.PN ---
Subjective Date of Service: 01/27/19 Chief Complaint: Respiratory failure septic shock satisfactory hypotension Patient's condition is worsening he is in coma refractory hypotension acute liver failure Review of Systems is unable to be obtained Physical Examination - Vital Signs Temperature: 97.4 F Blood Pressure: 90/49 Pulse: 99 Respirations: 23 Pulse Ox (%): 95 - Physical Exam General: Comatose Respiratory: Clear to auscultation bilaterally Cardiovascular: Regular rate/rhythm, Edema - Studies Microbiology Data (last 24 hrs): 01/25/19 13:55 Catheterized Urine [place] Count - Final >100,000 CFU/ML. 01/25/19 13:55 Catheterized Urine - Final Staph Aureus Assessment & Plan - Problems (Diagnosis) (1) Shock Current Visit: Yes Status: Acute Plan: Patient is 73 years of age admitted with multiorgan failure renal failure acute liver failure respiratory failure thrombocytopenia in refractory shock prognosis is poor unlikely to survive consider withdrawing care blood cultures positive for Gram-positive [place]
--- NOTE | 2019-01-27 12:47 | P.PN ---
Subjective Date of Service: 01/27/19 Chief Complaint: Respiratory failure septic shock satisfactory hypotension Subjective: Worsening MR. FRANK IS COMATOSE AND HAS AGONAL BREATHING EVEN ON THE VENT. Review of Systems is unable to be obtained Physical Examination - Vital Signs Temperature: 97.4 F Blood Pressure: 90/49 Pulse: 99 Respirations: 23 Pulse Ox (%): 95 - Physical Exam General: Severe distress, Comatose, Obese HEENT: Atraumatic, PERRLA, EOMI Neck: Supple, JVD not distended Respiratory: Diminished, Other (RAPID.) Cardiovascular: Abnormal S1 S2 (TACHYCARDIA) Gastrointestinal: Normal bowel sounds, No tenderness Musculoskeletal: No tenderness Integumentary: No rashes Lymphatics: No axilla or inguinal lymphadenopathy - Studies Microbiology Data (last 24 hrs): 01/25/19 13:55 Catheterized Urine [place] Count - Final >100,000 CFU/ML. 01/25/19 13:55 Catheterized Urine - Final Staph Aureus Medications List Reviewed: Yes Assessment And Plan - Current Problems (Diagnosis) (1) Shock Current Visit: Yes Status: Acute Plan: HE IS TERMINAL FROM SEPTIC SHOCK. ALL HIS LAB SHOWS EFFCTS OF SEPSIS AND LOW BP. SOURCE OF SEPSIS IS NOT CLEAR ON CT SCANS. IN ANY CASE THE OUTCOME IS TERMINAL. I HAD LONG DISCUSSION WITH ALL FOUR SONS AND DAUGHTER IN LAW. THEY UNDERSTAND THAT HE IS END STAGE AND WITHOUT MEDICINES HE WILL IN MINUTES. HIS OUTCOME WITH FULL CODE IS THE SAME. I RECOMMENDED DNR AND THEY DID TODAY. I ALSO RECOMMEND WITHDRAWAL OF CARE AND THEY ARE THINKING ABOUT IT. IF THEY DON'T DO IT HE WILL STILL PASS WITH ALL MEDS AND INTUBATION ON. SEPTIC SHOCK AND LAB ABNORMAILITIES OF LOW PLATELETS, METABOLIC ACIDOSIS, HIGH K. COMATOSE AND TERMINAL. FAMILY IS TRYING TO DECIDE ABOUT WITHDRAWAL OF CARE. HE MAY NOT LAST MORE THAN A DAY. (2) Alcohol abuse Current Visit: No Status: Acute
[2019-01-27 16:58] VITALS: O2SAT 93
--- NOTE | 2019-01-27 17:40 | P.PN ---
Date of Service: 01/27/19 Vital Signs Temp Pulse Resp BP Pulse Ox 97.9 F 104 H 22 H 65/51 L 95 01/27/19 15:00 01/27/19 17:15 01/27/19 17:15 01/27/19 17:15 01/27/19 17:15 Medications Ascorbic Acid (Vitamin C) 500 mg PO BID [facility] Stop: 02/25/19 06:51 Last Admin: 01/27/19 10:01 Dose: 500 mg Famotidine (Pepcid) 20 mg IV DAILY [facility] Stop: 02/25/19 09:01 Last Admin: 01/27/19 10:01 Dose: 20 mg Fentanyl Citrate (Sublimaze) 25 mcg IV Q4HP PRN PRN Reason: Pain scale 8-10 (Severe) Stop: 02/25/19 02:37 Hydrocortisone Sodium Succinate (Solu-Cortef) 100 mg IV Q12HR [facility] Stop: 02/25/19 09:01 Last Admin: 01/27/19 10:02 Dose: 100 mg Pharmacy Consult (Pharmacy Consult) 1 mls @ 1 mls/hr XX DAILYPRN PRN; Protocol PRN Reason: Vancomycin dose by pharmacy Stop: 02/24/19 16:02 Cefepime HCl (Maxipime 1 Gm/10 Ml Ivp) 10 mls @ 200 mls/hr IV Q12HR 6AM AND 6PM [facility] Stop: 02/25/19 06:01 Last Admin: 01/27/19 06:32 Dose: 10 mls Vancomycin HCl 2 gm/ Sodium (Chloride) 500 mls @ 250 mls/hr IVPB Q36H [facility] Stop: 02/26/19 06:01 Last Admin: 01/27/19 06:32 Dose: 500 mls Phenylephrine HCl 50 mg/ (Dextrose) 255 mls @ 0 mls/hr IV PRN PRN; Protocol PRN Reason: Hemodynamic Parameters Stop: 02/25/19 01:40 Last Admin: 01/27/19 12:45 Dose: 255 mls Vasopressin 80 unit/ Sodium (Chloride) 254 mls @ 0 mls/hr IV PRN PRN; Protocol PRN Reason: Hemodynamic Parameters Stop: 02/25/19 04:08 Last Admin: 01/26/19 04:20 Dose: 254 mls Norepinephrine Bitartrate 8 mg (/ Dextrose) 508 mls @ 0 mls/hr IV PRN PRN; Protocol PRN Reason: Hemodynamic Parameters Stop: 02/25/19 10:29 Last Admin: 01/27/19 13:16 Dose: 508 mls Sodium Bicarbonate 75 meq/ (Dextrose/Water) 1,075 mls @ 50 mls/hr IV .[id number] [facility] Stop: 02/26/19 18:01 Midazolam HCl (Versed) 2 mg IV Q2HP PRN PRN Reason: SEDATION Stop: 02/25/19 02:37 Sodium Chloride (Normal Saline Flush) 10 ml IV BID [facility] Stop: 02/24/19 21:01 Last Admin: 01/27/19 10:02 Dose: 10 ml Sodium Polystyrene Sulfonate (Kayexelate) 15 gm FT Q6H [facility] Stop: 01/28/19 00:01 Sterile Water (Sterile Water For Inj (10 Ml Vial)) 2 ml IV Q12HR [facility] Stop: 02/26/19 09:01 Last Admin: 01/27/19 10:01 Dose: 2 ml Thiamine HCl (Vitamin B-1) 100 mg IVP DAILY [facility] Stop: 02/25/19 09:01 Last Admin: 01/27/19 10:01 Dose: 100 mg Microbiology Results 01/25/19 13:55 Catheterized Urine [place] Count - Final >100,000 CFU/ML. 01/25/19 13:55 Catheterized Urine - Final Staph Aureus 01/25/19 14:14 Blood - Blood Aerobic Blood Culture - Preliminary 01/25/19 14:14 Blood - Blood Gram Stain - Preliminary 01/25/19 14:14 Blood - Blood Anaerobic Blood Culture - Preliminary 01/25/19 14:14 Blood - Blood Gram Stain - Preliminary 01/25/19 13:55 Blood - Blood Aerobic Blood Culture - Preliminary 01/25/19 13:55 Blood - Blood Gram Stain - Preliminary 01/25/19 13:55 Blood - Blood Anaerobic Blood Culture - Preliminary 01/25/19 13:55 Blood - Blood Gram Stain - Preliminary Assessment/ Plan: Nephrology. Limited IH/ ROS due to unresponsiveness. Case dicussed with the nurse at the bedside. Vitals, medications, blood work and imaging reviewed in the chart. General: Unresponsive, Obese HEENT: Normocephalic, Scleral icterus Neck: Supple, No LAD Respiratory: Clear to auscultation bilaterally, Normal air movement Cardiovascular: No rubs, Edema (Hips) Gastrointestinal: Hypoactive, Non-distended, No guarding Musculoskeletal: No clubbing, No contractures, No erythema Integumentary: No rashes, No significant lesion, No cyanosis Neurological: Other (Non responsive) Urinary: Smith catheter Greater than 30 minutes patient care. Laboratory Data (last 24 hrs) 01/25/19 13:55: PT 22.8 H, INR 1.98, APTT 43.3 H 01/25/19 13:55: WBC 20.4 H*, Hgb 19.2 H, Hct 58.9 H, Plt Count 59 L 01/25/19 13:55: Sodium 149 H, Potassium 5.4 H, BUN 69 H, Creatinine 1.86 H, Glucose 95, Total Bilirubin 8.7 H*, AST 75 H, ALT 45, Alkaline Phosphatase 133 H , Lipase 87 Imagings Data: EXAM DESCRIPTION: CT - Head C Spine Cap Wo Con - 01/25/2019 3:08 pm CLINICAL HISTORY: Fall, head, neck, chest and abdomen pain COMPARISON: CT abdomen and pelvis September 2016, CT chest June 2018 TECHNIQUE: Axial [address] head images were obtained. Axial [address] cervical spine images were obtained with sagittal and coronal reconstruction images reviewed. Axial 5 mm images of the chest, abdomen and pelvis were obtained. All CT scans are performed using dose optimization technique as appropriate and may include automated exposure control or mA/KV adjustment according to patient size. FIDINGS: No intracranial hemorrhage, mass or edema. No midline shift or abnormal fluid collection. Mastoid air cells and paranasal sinuses are clear. No skull fracture. Atrophy and chronic ischemic changes are present. Ventricles are in proportion. Cervical bodies are normal in height and alignment. No fracture or acute bone finding.All cervical levels show disc space narrowing. Multilevel bony foraminal encroachment and borderline to mild spinal stenosis [id number] prevertebral soft tissue thickening or paraspinal mass.Central canal detail is inherently limited on CT imaging. CT chest shows no pneumothorax, pulmonary contusion or pleural fluid collection. Calcified pleural plaques are present. No mediastinal hematoma and the aorta and pulmonary arteries are unremarkable. No chest will mass or abnormal axillary finding. No displaced rib fracture or other significant bony finding. CT abdomen and pelvis show no injury to solid abdominal viscera. Cirrhotic liver changes are present. No focal liver lesions seen on noncontrast imaging. Gallstones are present without acute gallbladder finding. No biliary tree dilatation. No bowel injury or significant finding. No free air, free fluid or abnormal stranding. No hernia, mass or bulky lymphadenopathy. No urinary bladder abnormality. Thoracic and lumbar vertebral body and disc degenerative changes are present without acute finding. No pelvis or proximal femur acute finding. IMPRESSION: Atrophy and chronic ischemic changes are present with no acute intracranial finding. Cervical spine degenerative changes with foraminal stenosis and borderline to mild multilevel spinal stenosis. No acute findings seen. No acute CT chest finding. Cirrhotic liver changes are present with no ascites. No focal liver lesion on noncontrast imaging. No acute abdominal or pelvic finding. Conclusions/Impression: A/ PEPE in the setting of severe sepsis. Hyperkalemia. Hypernatremia. Acidosis. Proteinuria. Severe sepsis with shock. EtOH Liver cirrhosis. Acute hepatitis. Hypoalbuminemia. Thrombocytopenia. P/ Continue current POC and Medications. Reduce IVF due to anasarca. Give Kayexalate. Reduce free water throught NGT. Pressor support as ordered. Ventilator support as ordered. Agree with abx. No NSAIDs. AM Labs. Daily weight. Poor prognosis. Do not recommend dialysis at this time.
[2019-01-27] MEDS ORDERED: D5W 1,000 ML with NA BICARB 8.4% 75 MEQ IV SCH ×2 (18:00)
[2019-01-27] MEDS ORDERED: SOD POLYSTYREN SUL 15 GM/60 ML UCUP FT SCH (18:00)
[2019-01-27] MEDS: VASOPRESSIN 80 UNIT in NA CHLORIDE 0.9% 250 ML IV PRN (19:15)
[2019-01-27 22:34] VITALS: TEMP 98.3
[2019-01-27 23:18] VITALS: BP 40/21
--- NOTE | 2019-01-29 21:23 | P.DS ---
Admission Date: 01/25/19 Discharge Date: 01/29/19 Disposition: Discharge Condition: Reason for Admission: Respiratory failure septic shock satisfactory hypotension - Problems (1) Shock Status: Acute (2) Alcohol abuse Status: Acute Brief History of Present Illness: MR. 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 RECENTLY HE HAD STARTED TO DRINK AGAIN AND AT HIS HOME HE WAS FOUND ON THE FLOOR BY DAUGHTER. HE HAD BEEN ON THE FLOOR FOR 3 DAYS APPX. HE IS IN SEPTIC SHOCK, HE IS ON 3 MEDS TO KEEP PRESSURE UP TO 90 SYSTOLIC. HE IS TOTALLY COMATOSE. MR FRANK EXPECTED FROM SEPTIC SHOCK. HE WAS TERMINAL IN CONDITION FROM DAY ONE. HE WAS FOUND ON THE FLOOR FO UNKNOWN NUMBER OF DAYS AND IT TOOK 3 MEDICINES TO BRING HIS BP TO 90 SYSTOLIC. HE NEVER SHOWED ANY SIGNS OF LIFE . HE STAYED BRAIN . WE EXPLAINED TO FAMILY ON DAY ONE TO MAKE HIM DNR WHICH THEY DID BUT THEY WANTED TO GIVE HIM 2 DAYS BEFORE WITHDRAWAL OF CARE. HE BEFORE TWO DAYS WERE OVER AT NIGHT 11.37 PM. Vital Signs/Physical Exam: Temp Pulse Resp BP Pulse Ox 98.3 F 55 20 40/21 L 85 L 01/27/19 23:15 01/27/19 23:15 01/27/19 20:30 01/27/19 23:15 01/27/19 21:30 Laboratory Data at Discharge: WBC 14.6 K/uL (4.3-10.9) H D 01/27/19 04:53 Hgb 11.7 g/dL (13.6-17.9) L D 01/27/19 04:53 Hct 36.7 % (39.6-49.0) L D 01/27/19 04:53 Plt Count 16 K/uL (152-406) L* D 01/27/19 04:53 PT 22.8 SECONDS (9.5-12.5) H 01/25/19 13:55 INR 1.98 01/25/19 13:55 APTT 43.3 SECONDS (24.3-36.9) H 01/25/19 13:55 Sodium 139 mmol/L (136-145) 01/27/19 04:53 Potassium 5.9 mmol/L (3.5-5.1) H* 01/27/19 04:53 BUN 72 mg/dL (7-18) H 01/27/19 04:53 Creatinine 3.82 mg/dL (0.55-1.3) H 01/27/19 04:53 Glucose 155 mg/dL (74-106) H 01/27/19 04:53 Total Bilirubin 11.3 mg/dL (0.2-1.0) H* 01/27/19 04:53 AST 83550 U/L (15-37) H* D 01/27/19 04:53 ALT 3710 U/L (12-78) H* D 01/27/19 04:53 Alkaline Phosphatase 338 U/L (45-117) H D 01/27/19 04:53 Lipase 87 U/L (73-393) 01/25/19 13:55 Home Medications: Spironolactone [Aldactone*] 100 mg PO DAILY 05/09/16 Thiamine Mononitrate [Vitamin B-1] 1 tab PO DAILY 06/01/16 Desoximetasone 1 appl TD BID 01/25/19 Furosemide [Lasix] 40 mg PO BIDL 01/25/19 Multivit-Min/Iron Fum/Folic AC [[place]-Pjjnurt-Xxtaktmm Tablet] 1 tab PO DAILY Propranolol [Inderal LA*] 60 mg PO DAILY 01/25/19 Rifaximin [Xifaxan*] 550 mg PO BID 01/25/19
== END 2019-01-28 01:10 | disposition expired | DRG 871 ==
LOC: ER 13:27 → ERHOLD 15:58 → 3RD-ICU 19:26
PROVIDERS: ADMIT Internal Medicine; ATTEND Internal Medicine
PROC: 0D9670Z Drainage of Stomach with Drainage Device, Via Natural or Artificial Opening (ICD-10-PCS; 2019-01-25)
PROC: 0BH17EZ Insertion of Endotracheal Airway into Trachea, Via Natural or Artificial Opening (ICD-10-PCS; principal; 2019-01-26)
PROC: 5A1945Z Respiratory Ventilation, 24-96 Consecutive Hours (ICD-10-PCS; 2019-01-26)
PROC: 06HM33Z Insertion of Infusion Device into Right Femoral Vein, Percutaneous Approach (ICD-10-PCS; 2019-01-26)
DX: A41.9 Sepsis, unspecified organism (principal); R65.21 Severe sepsis with septic shock; J96.01 Acute respiratory failure with hypoxia; K72.01 Acute and subacute hepatic failure with coma; B19.0 Unspecified viral hepatitis with hepatic coma; N17.9 Acute kidney failure, unspecified; E87.2 Acidosis; E87.0 Hyperosmolality and hypernatremia; D69.6 Thrombocytopenia, unspecified; E87.5 Hyperkalemia; K70.30 Alcoholic cirrhosis of liver without ascites; F10.10 Alcohol abuse, uncomplicated; R80.9 Proteinuria, unspecified; E88.09 Other disorders of plasma-protein metabolism, not elsewhere classified; Z66 Do not resuscitate; I95.9 Hypotension, unspecified; I46.9 Cardiac arrest, cause unspecified
CPT/HCPCS: 36415; 51702; 70450; 71045; 71250; 72125; 80048; 80053; 80076; 80202; 80307; 80320; 81003; 81015; 82140; 82550; 82553; 82805; 82962; 83605; 83690; 84145; 84484; 85025; 85610; 85730; 87040; 87070; 87077; 87086; 87088; 87186; 87205; 93005; 94002; 94003; 99285; J0692; J1720; J2370; J2405; J2704; J3370; J3411; J7030; J7060; P9047